=== PATIENT | female | born 1960 | race Caucasian/White ===

== ENCOUNTER → 2017-04-11 | Outpatient (CLI) | payer BC ==
--- NOTE | 2017-04-12 13:15 | MM ---
Reason for exam: screening (asymptomatic). Last mammogram was performed 1 year and 11 months ago. History: Patient is postmenopausal and had first child at age 33. Family history of breast cancer in aunt at age 60 and breast cancer in aunt at age 50. Physical Findings: A clinical breast exam by your physician is recommended on an annual basis and results should be correlated with mammographic findings. MG 3D Screening Mammo W/Cad Bilateral CC and MLO view(s) were taken. Prior study comparison: April 29, 2015, bilateral MG screening mammo w CAD. June 13, 2012, bilateral digital screening mammo w/CAD. There are scattered fibroglandular densities. There is chronic nodularity in the right breast. There is no discrete abnormality. ASSESSMENT: Benign, BI-RAD 2 RECOMMENDATION: Routine screening mammogram of both breasts in 1 year.
== END | disposition home or self-care (01) ==
LOC: RADMAMWWP 15:42
PROVIDERS: ATTEND Obstetrics & Gynecology
DX: Z12.31 Encounter for screening mammogram for malignant neoplasm of breast (principal)
CPT/HCPCS: 77063; 77067

== ENCOUNTER → 2018-07-22 | Outpatient (CLI) | payer BC ==
--- NOTE | 2018-07-22 16:47 | BD ---
EXAMINATION TYPE: Axial Bone Density DATE OF EXAM: 07/22/2018 COMPARISON: NONE CLINICAL HISTORY: Height: 5 FT 3 IN Weight: 164 FRAX RISK QUESTIONS: Family History (Parent hip fracture): YES RISK FACTORS HISTORY OF: Active: YES Postmenopausal woman: PART ORESTESST AGE 52 MEDICATIONS: Additional Medications: NONE Additional History: PREV BONE DENSITY DONE AT DRS OFFICE EXAM MEASUREMENTS: Bone mineral densitometry was performed using the [employer] System. Bone mineral density as measured about the Lumbar spine is: ----- L1-L4(G/cm2): 1.281 T Score Values are as follows: ----- L2: 0.5 ----- L3: 1.3 ----- L4: 1.2 ----- L1-L4: 0.8 PREV DONE IN DRS OFFICE Bone mineral density about the R hip (g/cm2): 0.960 Bone mineral density about the L hip (g/cm2): 0.963 T Score values are as follows: -----R Neck: -0.6 -----L Neck: -0.5 -----R Total: 0.1 -----L Total: 0.5 PREV DONE IN DRS OFFICE IMPRESSION: Normal (Values between +1 and -1 indicate normal bone mass). Consider repeating this study in 5 year s or sooner if there is some new clinical indication. NOTE: T-SCORE=SD OF THE YOUNG ADULT MEAN.
--- NOTE | 2018-07-23 10:20 | MM ---
Reason for exam: screening (asymptomatic). Last mammogram was performed 1 year and 3 months ago. History: Patient is postmenopausal and had first child at age 33. Family history of breast cancer in aunt at age 60 and breast cancer in aunt at age 50. Physical Findings: A clinical breast exam by your physician is recommended on an annual basis and results should be correlated with mammographic findings. MG 3D Screening Mammo W/Cad Bilateral CC and MLO view(s) were taken. Prior study comparison: April 11, 2017, bilateral MG 3d screening mammo w/cad. April 29, 2015, bilateral MG screening mammo w CAD. The breast tissue is heterogeneously dense. This may lower the sensitivity of mammography. There is no discrete abnormality. No significant changes when compared with prior studies. ASSESSMENT: Negative, BI-RAD 1 RECOMMENDATION: Routine screening mammogram of both breasts in 1 year.
== END | disposition home or self-care (01) ==
LOC: RADMAMWWP 08:46
PROVIDERS: ATTEND Internal Medicine Geriatric Medicine
DX: Z12.31 Encounter for screening mammogram for malignant neoplasm of breast (principal); M81.0 Age-related osteoporosis without current pathological fracture
CPT/HCPCS: 77063; 77067; 77080

== ENCOUNTER → 2019-09-16 | Outpatient (CLI) | payer BC ==
--- NOTE | 2019-09-16 14:52 | ECHOS ---
STRESS ECHOCARDIOGRAM LUMASON: Vial INDICATIONS: Palpitations. MEDICATIONS: Crestor, Benicar. BASELINE HEART RATE: 65 BASELINE BLOOD PRESSURE: 114/60 MAXIMUM HEART RATE: 159 MAXIMUM BLOOD PRESSURE: 191/71 85% MPHR: 136 100% MPHR: 160 METS: 9.7 MAXIMUM STAGE REACHED: 3 TOTAL EXERCISE TIME: 8:00 CLINICAL INFORMATION: Baseline EKG shows sinus rhythm, poor R-wave progression and [address]-segment depression in the inferolateral leads. The patient exercised on Robby protocol for a total of 8 minutes achieving 9 METS, 85% of predicted maximal heart rate without chest pain or diagnostic ST-segment depression. Baseline echo shows normal left ventricular size, wall motion systolic function. Postexercise, the basal inferior wall seemed to be hypokinetic. CONCLUSION: 1. Above-average exercise tolerance. 2. Inconclusive EKG part of the stress test due to baseline EKG abnormalities. 3. Abnormal stress echo with hypokinesis involving the basal inferior wall at peak exercise. MMODL / IJN: [id number] /
== END | disposition home or self-care (01) ==
LOC: RADNMMAIN 09:06
PROVIDERS: ATTEND Internal Medicine Geriatric Medicine
DX: R94.31 Abnormal electrocardiogram [ECG] [EKG] (principal); R94.39 Abnormal result of other cardiovascular function study
CPT/HCPCS: 93351

== ENCOUNTER → 2019-09-17 | Outpatient (CLI) | payer BC ==
--- NOTE | 2019-09-18 11:10 | MM ---
Reason for exam: screening (asymptomatic). Last mammogram was performed 1 year and 2 months ago. History: Patient is postmenopausal and had first child at age 33. Family history of breast cancer in sister at age 53, breast cancer in aunt at age 60, and breast cancer in aunt at age 50. Physical Findings: A clinical breast exam by your physician is recommended on an annual basis and results should be correlated with mammographic findings. MG 3D Screening Mammo W/Cad Bilateral CC and MLO view(s) were taken. Prior study comparison: July 22, 2018, bilateral MG 3d screening mammo w/cad. April 11, 2017, bilateral MG 3d screening mammo w/cad. The breast tissue is heterogeneously dense. This may lower the sensitivity of mammography. There are benign appearing round calcifications bilaterally. There is chronic nodularity in the right breast. There is no discrete abnormality. ASSESSMENT: Benign, BI-RAD 2 RECOMMENDATION: Routine screening mammogram of both breasts in 1 year.
== END | disposition home or self-care (01) ==
LOC: RADMAMWWP 09:10
PROVIDERS: ATTEND Obstetrics & Gynecology
DX: Z12.31 Encounter for screening mammogram for malignant neoplasm of breast (principal); Z80.3 Family history of malignant neoplasm of breast
CPT/HCPCS: 77063; 77067

== ENCOUNTER → 2019-09-22 | Outpatient (CLI) | payer BC ==
--- NOTE | 2019-09-22 14:23 | US ---
EXAMINATION TYPE: US kidneys/renal and bladder DATE OF EXAM: 09/22/2019 COMPARISON: NONE CLINICAL HISTORY: R94.4 Abnormal results of kidney function studies. EXAM MEASUREMENTS: Right Kidney: 9.6 x 3.4 x 4.2 cm Left Kidney: 9.2 x 4.9 x 5.0 cm Patient of large body habitus. Right Kidney: No hydronephrosis or masses seen Left Kidney: No hydronephrosis or masses seen Bladder: wnl There is no evidence for hydronephrosis at this point in time. No nephrolithiasis is seen. No joya s are identified. The urinary bladder is anechoic. Bilateral ureteral jets are seen. IMPRESSION: Slightly suboptimal study without evidence of hydronephrosis seen bilaterally.
== END | disposition home or self-care (01) ==
LOC: RADUSWWP 13:34
PROVIDERS: ATTEND Internal Medicine Geriatric Medicine
DX: R94.4 Abnormal results of kidney function studies (principal)
CPT/HCPCS: 76770

== ENCOUNTER 2019-12-15 16:17 | Emergency (ER) | payer BC ==
[2019-12-15 16:38] VITALS: BP 138/74; PULSE 64; RESP 18; TEMP 98.2
--- NOTE | 2019-12-15 17:12 | ED ---
General Adult HPI - General Chief complaint: Head Injury Stated complaint: Fall head injury Time Seen by Provider: 12/15/19 16:40 Source: patient, RN notes reviewed Mode of arrival: ambulatory Limitations: no limitations - History of Present Illness Initial comments: Patient is a pleasant 59-year-old female presenting to the emergency department with fall and head injury. Patient was standing on a chair dusting when she fell. Patient did strike the right side of her head on a dresser. Patient did not lose consciousness. Patient does have moderate discomfort. Patient has felt lightheaded. No confusion. No speech problem. No difficulty with walking. No weakness or loss of sensation. Patient does not take blood thinners. No history of similar head injuries previously. Patient states she is now starting to have some mild discomfort of her lower back. No incontinence or retention of bowel or bladder. - Related Data Previous Rx's Medication Instructions Recorded Ibuprofen [Motrin] 600 mg PO Q6HR PRN #20 tab 12/15/19 Allergies Allergy/AdvReac Type Severity Reaction Status Date / Time Sulfa (Sulfonamide Allergy Rash/Hives Verified 12/15/19 16:38 Antibiotics) Review of Systems ROS Statement: Those systems with pertinent positive or pertinent negative responses have been documented in the HPI. ROS Other: All systems not noted in ROS Statement are negative. Constitutional: Denies: fever Eyes: Denies: eye pain ENT: Reports: ear pain Respiratory: Denies: cough Cardiovascular: Denies: chest pain Endocrine: Denies: fatigue Gastrointestinal: Denies: abdominal pain Genitourinary: Denies: dysuria Musculoskeletal: Denies: back pain Skin: Denies: rash Neurological: Reports: as per HPI, headache (Mild discomfort on the right side). Denies: weakness, numbness, paresthesias, confusion Past Medical History Past Medical History: Hyperlipidemia, Hypertension Past Surgical History: No Surgical Hx Reported General Exam Limitations: no limitations General appearance: alert, in no apparent distress Head exam: Present: other (Abrasions right ear) Eye exam: Present: normal appearance, PERRL, EOMI. Absent: nystagmus ENT exam: Present: normal exam Neck exam: Present: normal inspection, full ROM. Absent: tenderness Respiratory exam: Present: normal lung sounds bilaterally. Absent: chest wall tenderness Cardiovascular Exam: Present: regular rate, normal rhythm GI/Abdominal exam: Present: soft. Absent: distended, tenderness Extremities exam: Present: normal inspection, full ROM. Absent: tenderness Back exam: Present: tenderness (Mild tenderness L2 region) Neurological exam: Present: alert, oriented X3, CN II-XII intact. Absent: motor sensory deficit Expanded Neurological exam: Present: protecting the airway Speech: Present: fluid speech Cranial nerves: EOM's Intact: Normal Sensory exam: Upper Extremity Light Touch: Normal, Lower Extremity Light Touch: Normal Motor strength exam: RUE: 5, LUE: 5, RLE: 5, LLE: 5 Eye Response: (4) open spontaneously Motor Response: (6) obeys commands Verbal Response: (5) oriented Psychiatric exam: Present: normal affect, normal mood Skin exam: Present: abrasion (Abrasions right ear, mild) Course Vital Signs 12/15/19 16:35 Temperature 98.2 F Pulse Rate 64 Respiratory 18 Rate Blood Pressure 138/74 O2 Sat by Pulse 99 Oximetry - Reevaluation(s) Reevaluation #1: 12/15/19 17:10 Patient is agreeable with head CT however does not want to have lumbar x-rays. Patient is unclear when her last tetanus immunization was. Patient does not want tetanus immunization provided but is agreeable to follow-up with her doctor regarding this. Medical Decision Making - Medical Decision Making Patient reevaluated and updated. Patient does not want any medication for lightheadedness or pain however does request prescription for Motrin 600 or Motrin 800. Patient still does not want back x-rays. - Radiology Data Radiology results: report reviewed (Computed tomography scan of the brain reveals no acute process) Disposition Clinical Impression: Fall, Head injury, Back strain Disposition: HOME SELF-CARE Condition: Stable Instructions (If sedation given, give patient instructions): Head Injury (ED), Low Back Strain (ED) Additional Instructions: Please do follow-up with your primary care physician in the next day or 2 for recheck. Prescription for Motrin 600 sent to your pharmacy. Avoid Motrin for the first 24 hours following head injury. Return for confusion, weakness, difficulty walking, dizziness or vomiting, worsening symptoms, increased back pain, or any other concerns. Prescriptions: Ibuprofen [Motrin] 600 mg PO Q6HR PRN #20 tab PRN Reason: Pain Is patient prescribed a controlled substance at d/c from ED?: No Referrals: Nehemias Schmidt MD [Primary Care Provider] - 1-2 days Time of Disposition: 17:49
--- NOTE | 2019-12-15 17:37 | CT ---
EXAMINATION TYPE: CT brain wo con DATE OF EXAM: 12/15/2019 COMPARISON: None HISTORY: dizziness post fall CT DLP: 1099.4 mGycm Automated exposure control for dose reduction was used. Ventricles and sulci appear normal. There is no mass effect nor midline shift. There is no sign of in tracranial hemorrhage. The calvarium is intact. IMPRESSION: Negative unenhanced head CT scan.
== END 2019-12-15 17:55 | disposition home or self-care (01) ==
LOC: EC 16:17
DX: S00.411A Abrasion of right ear, initial encounter (principal); S39.012A Strain of muscle, fascia and tendon of lower back, initial encounter; R42 Dizziness and giddiness; W07.XXXA Fall from chair, initial encounter; Y93.H9 Activity, other involving exterior property and land maintenance, building and construction; Z88.2 Allergy status to sulfonamides
CPT/HCPCS: 70450; 99283

== ENCOUNTER → 2020-09-20 | Outpatient (CLI) | payer BC ==
--- NOTE | 2020-09-21 10:05 | MM ---
Reason for exam: screening (asymptomatic). Last mammogram was performed 1 year ago. History: Patient is postmenopausal, has history of other cancer at age 55, and had first child at age 33. Family history of breast cancer in sister at age 53, breast cancer in aunt at age 60, and breast cancer in aunt at age 50. Physical Findings: A clinical breast exam by your physician is recommended on an annual basis and results should be correlated with mammographic findings. MG 3D Screening Mammo W/Cad Bilateral CC and MLO view(s) were taken. Prior study comparison: September 17, 2019, bilateral MG 3d screening mammo w/cad. July 22, 2018, bilateral MG 3d screening mammo w/cad. There are scattered fibroglandular densities. ASSESSMENT: Negative, BI-RAD 1 RECOMMENDATION: Routine screening mammogram of both breasts in 1 year.
== END | disposition home or self-care (01) ==
LOC: RADMAMWWP 09:50
PROVIDERS: ATTEND Obstetrics & Gynecology
DX: Z12.31 Encounter for screening mammogram for malignant neoplasm of breast (principal); Z78.0 Asymptomatic menopausal state; Z80.3 Family history of malignant neoplasm of breast
CPT/HCPCS: 77063; 77067

== ENCOUNTER → 2021-08-01 | Outpatient (CLI) | payer BC ==
--- NOTE | 2021-08-01 16:04 | XR ---
EXAMINATION TYPE: XR cervical spine comp DATE OF EXAM: 08/01/2021 CLINICAL HISTORY: pain COMPARISON: NONE TECHNIQUE: Frontal, lateral, oblique, swimmers, and open mouth view of the cervical spine are obtaine d. FINDINGS: The cervical spine is visualized in its entirety from C1 thru the top of T1 level. It is s atisfactory in alignment without evidence of acute fracture or dislocation. The pre-vertebral soft t issue appears within normal limits. Degenerative disc space narrowing and spondylosis at C4-C6. The C 1-C2 articulation is unremarkable on the open mouth view. The oblique images are within normal limit s. IMPRESSION: No acute fracture or dislocation is seen in the cervical spine.ICD 10 NO FRACTURE, INITI AL EVALUATION
== END | disposition home or self-care (01) ==
LOC: RADXRMAIN 15:40
PROVIDERS: ATTEND Internal Medicine Geriatric Medicine
DX: M54.2 Cervicalgia (principal)
CPT/HCPCS: 72050

== ENCOUNTER → 2021-08-01 | Outpatient (CLI) | payer BC ==
--- NOTE | 2021-08-01 15:32 | US ---
EXAMINATION TYPE: US kidneys/renal and bladder DATE OF EXAM: 08/01/2021 COMPARISON: US 09/22/19 CLINICAL HISTORY: N20.0 KIDNEY STONE. History of renal stones. C/O dull ache right lower back/flank. EXAM MEASUREMENTS: Right Kidney: 10.2 x 4.4 x 4.2 cm Left Kidney: 10.1 x 4.9 x 4.3 cm Post Void Residual Volume: 12.3 mL Right Kidney: No masses seen, mild fullness of pelvis = 0.9 cm, lateral cyst = 0.8 0.9 x 0.7 cm Left Kidney: No hydronephrosis or masses seen Bladder: wnl Bilateral Jets seen: Yes Normal Post Void Residual: Yes There is no evidence for hydronephrosis at this point in time. No nephrolithiasis is seen. No joya s are identified. The urinary bladder is anechoic. Bilateral ureteral jets are seen. IMPRESSION: Borderline right sided hydronephrosis
== END | disposition home or self-care (01) ==
LOC: RADUSWWP 14:44
PROVIDERS: ATTEND Internal Medicine Geriatric Medicine
DX: N13.30 Unspecified hydronephrosis (principal); Z87.442 Personal history of urinary calculi
CPT/HCPCS: 76770

== ENCOUNTER → 2021-09-27 | Outpatient (CLI) | payer BC ==
--- NOTE | 2021-09-29 07:38 | MM ---
Reason for Exam: Screening (asymptomatic). Last screening mammogram was performed 12 month(s) ago. Patient History: Menarche at age 14. First Full-Term at age 33. Late child-bearing (after 30). Right ovary removed at age 52. Hysterectomy at age 52. Postmenopausal. Other cancer, age 55. Maternal aunt had breast cancer, age 60. Maternal aunt had breast cancer, age 50. Sister had breast cancer, age 53. Risk Values: Krysta 5 year model risk: 2.8%. NCI Lifetime model risk: 12.4%. Prior Study Comparison: 07/22/2018 Bilateral Screening Mammogram, [facility]. 09/17/2019 Bilateral Screening Mammogram, [facility]. 09/20/2020 Bilateral Screening Mammogram, [facility]. Tissue Density: There are scattered fibroglandular densities. Findings: Analyzed By CAD. No suspicious groups of microcalcifications, spiculated or lobular masses, architectural distortion or other secondary signs of malignancy are mammographically apparent. Overall Assessment: Benign, BI-RAD 2 Management: Screening Mammogram of both breasts in 1 year. A negative mammogram report should not preclude additional follow up of suspicious palpable abnormalities. Patient should continue monthly self breast exam. A clinical breast exam by your physician is recommended on an annual basis and results should be correlated with mammographic findings. Electronically signed and approved by: Taiwo Rojas D.O. Radiologis
== END | disposition home or self-care (01) ==
LOC: RADMAMWWP 08:18
PROVIDERS: ATTEND Obstetrics & Gynecology
DX: Z12.31 Encounter for screening mammogram for malignant neoplasm of breast (principal); Z78.0 Asymptomatic menopausal state; Z80.3 Family history of malignant neoplasm of breast; Z85.3 Personal history of malignant neoplasm of breast
CPT/HCPCS: 77063; 77067

== ENCOUNTER 2022-03-22 09:20 | Observation (INO) | payer BC ==
[2022-03-22] MEDS ORDERED: ASPIRIN 81 MG PO STA (10:01)
--- NOTE | 2022-03-22 10:03 | ED ---
General Adult HPI - General Chief complaint: Chest Pain Stated complaint: Chest Pain, Sent by PCP Time Seen by Provider: 03/22/22 09:35 Source: patient Mode of arrival: ambulatory Limitations: no limitations - History of Present Illness Initial comments: Dictation was produced using [employer] dictation software. please excuse any grammatical, word or spelling errors. Chief Complaint: 62-year-old female presents to the ER for chest pain History of Present Illness: 62-year-old female sent in from primary care physician's office for chest pain. She describes as a pressure of the left anterior chest. And radiating. Not associated with diaphoresis and nausea. Patient was initially seen at primary care physician's office where she was initially evaluated. She was sent to the emergency department for further care. Patient has history of dyslipidemia and hypertension. Denies any history of cardiac disease though she does report strong family history of heart attacks and related complications. The ROS documented in this emergency department record has been reviewed and confirmed by me. Those systems with pertinent positive or negative responses have been documented in the HPI. All other systems are other negative and/or noncontributory. PHYSICAL EXAM: General Impression: Alert and oriented x3, not in acute distress HEENT: Normocephalic atraumatic, extra-ocular movements intact, pupils equal and reactive to light bilaterally, mucous membranes moist. Cardiovascular: Heart regular rate and rhythm Chest: Able to complete full sentences, no retractions, no tachypnea Abdomen: abdomen soft, non-tender, non-distended, no organomegaly Musculoskeletal: Pulses present and equal in all extremities, no peripheral mallory a Motor: no focal deficits noted Neurological: CN II-XII grossly intact, no focal motor or sensory deficits noted Skin: Intact with no visualized rashes Psych: Normal affect and mood ED course: 62-year-old female sent in from primary care physician's office for clinical presentation consistent with acute coronary syndrome. vital signs upon arrival are within acceptable limits. Initial EKG performed at 9:38 AM showed ischemic changes in the inferior leads. Repeat EKG performed approximately 15 minutes later shows improvement of these ST depressions. Nursing notes and chart review was performed EKG interpreted by me: Ventricular rate sinus rhythm, 69,. 160, QRS 87, QTc 434,. No PA prolongation, no QTC prolongation. ST depressions in inferior leads. No obvious ST elevations. EKG consistent with ischemic changes. Laboratory evaluation obtained. CBC, metabolic panel, coag panel is unremarkable. Abdominal labs negative. Initial troponin is negative. Chest x- ray is nonacute. Patient reevaluated at bedside 1120 and found to be in stable medical condition. She denies any active symptoms upon reevaluation. Patient's clinical presentation is concerning for acute coronary syndrome. Patient be admitted observation with consultation to cardiology. Patient admitted to [facility]. Was pt. sent in by a medical professional or institution? @Primary care physician's office, Dr. Schmidt Did you speak to anyone other than the patient for history? @Patient, family Did you review nursing and triage notes? @Reviewed, agreed Were old charts reviewed? @Not applicable Differential Diagnosis? @ [facility] Differential Chest Pain: Stable Angina, Unstable Angina, STEMI, NSTEMI Aortic Dissection, Pneumothorax, Musculoskeletal, Esophageal Spasm GERD, Cholecystitis, Pancreatitis, Zoster This is not meant to be an all-inclusive list. EKG interpreted by me (3pts min.)? @Yes, see above X-rays interpreted by me (1pt min.)? @Yes, unremarkable CT interpreted by me (1pt min.)? @ [none] U/S interpreted by me (1pt. min.)? @ [none] What testing was considered but not performed? (CT, X-rays, U/S, labs)? Why? @D-dimer was considered however patient's symptoms are unlikely to suggest pulmonary embolism What meds were considered but not given? Why? @ [none] Did you discuss the management of the patient with other professionals? @Admitting physician for [facility] Did you reconcile home meds? @Yes Was smoking cessation discussed for >3mins.? @ [none] Was critical care preformed (if so, how long)? @ [none] Were there social determinants of health that impacted care today? How? (Homelessness, low income, unemployed, alcoholism, drug addiction, transportation, low edu. Level, literacy, decrease access to med. care, [facility], rehab)? @Not applicable Was there de-escalation of care discussed even if they declined? (Discuss DNR or withdrawal of care, Hospice)? @Not applicable What co-morbidities impacted this encounter? (DM, HTN, Smoking, COPD, CAD, Cancer, CVA, Hep., AIDS, mental health diagnosis, sleep apnea, morbid obesity)? @Family history, hypertension Was patient admitted / discharged? @Admitted to observation for cardiac monitoring Undiagnosed new problem with uncertain prognosis? @This is patient's first encounter for chest pain in the hospital Drug Therapy requiring intensive monitoring for toxicity (Heparin, Nitro, Insulin, Cardizem)? @ [none] Were any procedures done? @ [none] Diagnosis/symptom? @Acute coronary syndrome Acute, or Chronic, or Acute on Chronic? @Acute Uncomplicated (without systemic symptoms) or Complicated (systemic symptoms)? @Uncomplicated Side effects of treatment? @ [none] Exacerbation, Progression, or Severe Exacerbation] @ [no] Poses a threat to life or bodily function? @Yes - Related Data Home Medications Medication Instructions Recorded Confirmed Rosuvastatin Calcium 5 mg PO Q48H 03/22/22 03/22/22 hydrALAZINE HCL [Apresoline] 25 mg PO BID 03/22/22 03/22/22 Allergies Allergy/AdvReac Type Severity Reaction Status Date / Time Sulfa (Sulfonamide Allergy Rash/Hives Verified 03/22/22 11:19 Antibiotics) Review of Systems ROS Statement: Those systems with pertinent positive or pertinent negative responses have been documented in the HPI. ROS Other: All systems not noted in ROS Statement are negative. Past Medical History Past Medical History: Hyperlipidemia, Hypertension History of Any Multi-Drug Resistant Organisms: None Reported Past Surgical History: No Surgical Hx Reported Past Psychological History: No Psychological Hx Reported Smoking Status: Never smoker Past Alcohol Use History: Occasional Past Drug Use History: None Reported General Exam Limitations: no limitations Course Vital Signs 03/22/22 09:32 Temperature 98.6 F Pulse Rate 75 Respiratory 20 Rate Blood Pressure 135/77 O2 Sat by Pulse 99 Oximetry Medical Decision Making - Lab Data Result diagrams: 03/22/22 10:20 03/22/22 10:20 Lab Results 03/22/22 03/22/22 03/22/22 Range/Units 10:20 10:20 10:20 WBC 5.8 (3.8-10.6) k/uL RBC 5.14 (3.80-5.40) m/uL Hgb 15.7 (11.4-16.0) gm/dL Hct 48.2 H (34.0-46.0) % MCV 93.8 (80.0-100.0) fL MCH 30.7 (25.0-35.0) pg MCHC 32.7 (31.0-37.0) g/dL RDW 12.3 (11.5-15.5) % Plt Count 287 (150-450) k/uL MPV 7.0 Neutrophils % 63 % Lymphocytes % 27 % Monocytes % 4 % Eosinophils % 4 % Basophils % 1 % Neutrophils # 3.6 (1.3-7.7) k/uL Lymphocytes # 1.6 (1.0-4.8) k/uL Monocytes # 0.2 (0-1.0) k/uL Eosinophils # 0.2 (0-0.7) k/uL Basophils # 0.1 (0-0.2) k/uL PT 10.1 (9.0-12.0) sec INR 0.9 (<1.2) APTT 24.7 (22.0-30.0) sec Sodium 140 (137-145) mmol/L Potassium 4.3 (3.5-5.1) mmol/L Chloride 109 H (98-107) mmol/L Carbon Dioxide 25 (22-30) mmol/L Anion Gap 6 mmol/L BUN 18 H (7-17) mg/dL Creatinine 0.92 (0.52-1.04) mg/dL Est GFR (CKD-EPI)AfAm 77 (>60 ml/min/1.73 sqM) Est GFR (CKD-EPI)NonAf 67 (>60 ml/min/1.73 sqM) Glucose 106 H (74-99) mg/dL Calcium 9.5 (8.4-10.2) mg/dL Magnesium 2.1 (1.6-2.3) mg/dL Total Bilirubin 0.6 (0.2-1.3) mg/dL AST 21 (14-36) U/L ALT 21 (4-34) U/L Alkaline Phosphatase 106 (38-126) U/L Troponin I (0.000-0.034) ng/mL Total Protein 7.1 (6.3-8.2) g/dL Albumin 4.5 (3.5-5.0) g/dL 03/22/ Range/Units 10:20 WBC (3.8-10.6) k/uL RBC (3.80-5.40) m/uL Hgb (11.4-16.0) gm/dL Hct (34.0-46.0) % MCV (80.0-100.0) fL MCH (25.0-35.0) pg MCHC (31.0-37.0) g/dL RDW (11.5-15.5) % Plt Count (150-450) k/uL MPV Neutrophils % % Lymphocytes % % Monocytes % % Eosinophils % % Basophils % % Neutrophils # (1.3-7.7) k/uL Lymphocytes # (1.0-4.8) k/uL Monocytes # (0-1.0) k/uL Eosinophils # (0-0.7) k/uL Basophils # (0-0.2) k/uL PT (9.0-12.0) sec INR (<1.2) APTT (22.0-30.0) sec Sodium (137-145) mmol/L Potassium (3.5-5.1) mmol/L Chloride (98-107) mmol/L Carbon Dioxide (22-30) mmol/L Anion Gap mmol/L BUN (7-17) mg/dL Creatinine (0.52-1.04) mg/dL Est GFR (CKD-EPI)AfAm (>60 ml/min/1.73 sqM) Est GFR (CKD-EPI)NonAf (>60 ml/min/1.73 sqM) Glucose (74-99) mg/dL Calcium (8.4-10.2) mg/dL Magnesium (1.6-2.3) mg/dL Total Bilirubin (0.2-1.3) mg/dL AST (14-36) U/L ALT (4-34) U/L Alkaline Phosphatase (38-126) U/L Troponin I <0.012 (0.000-0.034) ng/mL Total Protein (6.3-8.2) g/dL Albumin (3.5-5.0) g/dL Disposition Clinical Impression: ACS (acute coronary syndrome) Disposition: ADMITTED IP TO THIS [facility] Condition: Fair Referrals: Nehemias Schmidt MD [Primary Care Provider] - 1-2 days Decision Time: 11:27
[2022-03-22 10:31] LABS: Basophils # (A) 0.1 k/uL (0-0.2); Basophils % (A) 1 %; Eosinophils # (A) 0.2 k/uL (0-0.7); Eosinophils % (A) 4 %; HCT 48.2 % (34.0-46.0); HGB 15.7 gm/dL (11.4-16.0); Lymphocytes # (A) 1.6 k/uL (1.0-4.8); Lymphocytes % (A) 27 %; MCH 30.7 pg (25.0-35.0); MCHC 32.7 g/dL (31.0-37.0); MCV 93.8 fL (80.0-100.0); Monocytes # (A) 0.2 k/uL (0-1.0); Monocytes % (A) 4 %; Neutrophils # (A) 3.6 k/uL (1.3-7.7); Neutrophils % (A) 63 %; Platelet Count 287 k/uL (150-450); RBC 5.14 m/uL (3.80-5.40); RDW 12.3 % (11.5-15.5); WBC 5.8 k/uL (3.8-10.6)
[2022-03-22 10:44] LABS: INR 0.9 (<1.2); Partial Thromboplastin Time 24.7 sec (22.0-30.0); Prothrombin Time 10.1 sec (9.0-12.0)
[2022-03-22 10:46] LABS: Albumin 4.5 g/dL (3.5-5.0); Calcium 9.5 mg/dL (8.4-10.2); Magnesium 2.1 mg/dL (1.6-2.3); Potassium 4.3 mmol/L (3.5-5.1); Total Bilirubin 0.6 mg/dL (0.2-1.3); Total Protein 7.1 g/dL (6.3-8.2)
--- NOTE | 2022-03-22 10:47 | XR ---
EXAMINATION TYPE: XR chest 2V DATE OF EXAM: 03/22/2022 COMPARISON: 08/08/2011 HISTORY: Shortness of breath TECHNIQUE: Frontal and lateral views of the chest are obtained. FINDINGS: Scattered senescent parenchymal changes noted. Hyperinflation compatible with COPD. No evidence for infiltrate. No evidence for atelectasis. Heart size is stable. Mediastinal structures are stable and grossly unremarkable. No evidence for hilar prominence. Degenerative changes dorsal spine. IMPRESSION: 1. No evidence for acute pulmonary disease.
[2022-03-22] MEDS ORDERED: NITROGLYCERIN SL TABS 0.4 MG TAB SUBLINGUAL PRN (11:22)
[2022-03-22 11:39] VITALS: RESP 16
[2022-03-22] MEDS ORDERED: ACETAMINOPHEN TAB 325 MG TAB PO PRN (11:46)
[2022-03-22] MEDS ORDERED: HYDROcodone/APAP 5-325MG 1 EACH TAB PO PRN (11:46)
--- NOTE | 2022-03-22 11:48 | P.HPIM ---
History of Present Illness This is a pleasant 62 years old female presents with chest pain. Patient status for a week she has palpitations and lightheadedness and then she developed left upper chest pain radiating to the left neck about 5/10 in severity. [place] like pressure No associated dyspnea or coughing. No leg pain or swelling are at No diarrhea vomiting or abdominal pain, no urgency or urinary dysuria. She has mild frontal headache but no dizziness or weakness or numbness She denies smoking alcohol or illicit drugs Vitals and labs look unremarkable. Checks x-ray: No acute process. EKG: Sinus rhythm at [address]-T changes Patient started on aspirin 325 mg Review of Systems Review of systems CONSTITUTIONAL: No fever, no malaise, no fatigue. HEENT: No recent visual problems or hearing problems. Denied any sore throat. CARDIOVASCULAR: No orthopnea, PND, no palpitations, no syncope. PULMONARY: No shortness of breath, no cough, no hemoptysis. GASTROINTESTINAL: No diarrhea, no nausea, no vomiting, no abdominal pain. Normoactive bowel sounds. NEUROLOGICAL: No headaches, no weakness, no numbness. HEMATOLOGICAL: Denies any bleeding or petechiae. GENITOURINARY: Denies any burning micturition, frequency, or urgency. MUSCULOSKELETAL/RHEUMATOLOGICAL: Denies any joint pain, swelling, or any muscle pain. ENDOCRINE: Denies any polyuria or polydipsia. Past Medical History Past Medical History: Hyperlipidemia, Hypertension History of Any Multi-Drug Resistant Organisms: None Reported Past Surgical History: No Surgical Hx Reported Past Psychological History: No Psychological Hx Reported Smoking Status: Never smoker Past Alcohol Use History: Occasional Past Drug Use History: None Reported Medications and Allergies Home Medications Medication Instructions Recorded Confirmed Type Rosuvastatin Calcium 5 mg PO Q48H 03/22/22 03/22/22 History hydrALAZINE HCL [Apresoline] 25 mg PO BID 03/22/22 03/22/22 History Allergies Allergy/AdvReac Type Severity Reaction Status Date / Time Sulfa (Sulfonamide Allergy Rash/Hives Verified 03/22/22 11:19 Antibiotics) Physical Exam Vitals: Vital Signs Temp Pulse Resp BP Pulse Ox 03/22/22 11:37 98.1 F 96 16 136/70 100 03/22/22 09:32 98.6 F 75 20 135/77 99 Intake and Output 12/03/22/22 03/22/22 22:59 06:59 14:59 Other: Weight 80.739 kg GENERAL: The patient is alert and oriented x3, not in any acute distress. Well developed, well nourished. HEENT: Pupils are round and equally reacting to light. EOMI. No scleral icterus. No conjunctival pallor. Normocephalic, atraumatic. No pharyngeal erythema. No thyromegaly. -CARDIOVASCULAR: S1 and S2 present. No murmurs, rubs, or gallops. Left upper chest tenderness PULMONARY: Chest is clear to auscultation, no wheezing or crackles. ABDOMEN: Soft, nontender, nondistended, normoactive bowel sounds. No palpable organomegaly. MUSCULOSKELETAL: No joint swelling or deformity. EXTREMITIES: No cyanosis, clubbing, or pedal edema. NEUROLOGICAL: Gross neurological examination did not reveal any focal deficits. SKIN: No rashes. no petechiae. Results CBC & Chem 7: 03/22/22 10:20 03/22/22 10:20 Labs: Abnormal Lab Results - Last 24 Hours (Table) 03/22/22 03/22/22 Range/Units 10:20 10:20 Hct 48.2 H (34.0-46.0) % Chloride 109 H (98-107) mmol/L BUN 18 H (7-17) mg/dL Glucose 106 H (74-99) mg/dL Assessment and Plan Assessment: Left upper Chest pain and mild tenderness rule out cardiac causes Hypertension Hyperlipidemia Plan: Continue with monitoring cardiac exam continue with aspirin Cardiology consult Pain management Labs and medication were reviewed.. Continue same treatment. Continue with symptomatic treatment. Resume home medication. Monitor labs and vitals. DVT and GI prophylaxis. Further recommendations as per clinical course of the patient DVT prophylaxis: Subcutaneous heparin GI Prophylaxis: Pepcid PT/OT: Pending Prognosis is guarded
[2022-03-22] MEDS: FAMOTIDINE 20 MG TAB PO SCH (20:14)
[2022-03-22] MEDS: HEPARIN SODIUM,PORCINE/PF 5,000 UNIT/0.5 ML SYRINGE SQ SCH (20:15)
[2022-03-22] MEDS: hydrALAZINE HCL 25 MG TAB PO SCH (20:15)
[2022-03-22] MEDS ORDERED: ATORVASTATIN 10 MG TAB PO SCH (21:00)
[2022-03-22] MEDS ORDERED: FAMOTIDINE 20 MG/2 ML VIAL IV SCH (21:00)
[2022-03-23] MEDS: hydrALAZINE HCL 25 MG TAB PO SCH (08:12)
[2022-03-23] MEDS: HEPARIN SODIUM,PORCINE/PF 5,000 UNIT/0.5 ML SYRINGE SQ SCH (08:13)
[2022-03-23] MEDS: FAMOTIDINE 20 MG TAB PO SCH (08:13)
[2022-03-23 08:45] VITALS: TEMP 98.2
[2022-03-23] MEDS ORDERED: ASPIRIN 325 MG TAB PO SCH (09:00)
--- NOTE | 2022-03-23 09:13 | P.CRDCN ---
History of Present Illness Consult date: 03/23/22 Consult reason: chest pain History of present illness: History of present illness: This is a 62-year-old female with no history of coronary artery disease. She has a past medical history of hypertension and hyperlipidemia. Patient complains of chest pain/pressure and the upper left chest that been going on for one week. She also complains of palpitations. Pain radiates up into her neck on the left side and it's hard for her to turn her head to the left. It does not seem to be related to exertion. She denies having shortness of breath. She states she's had a little bit of lightheadedness but no syncope. She does feel uncomfortable lifting her left arm. She has a family history of father dying at age 68 with previous myocardial infarction at age 37. Her brother also had a myocardial infarction. EKG sinus rhythm with no acute ST changes Chest x-ray no acute process Troponin negative 3. BUN 18 creatinine 0.92, potassium 4.3 Home cardiac medications: Hydralazine 25 mg twice daily, rosuvastatin 5 mg every 48 hours Review Of Systems: At the time of my evaluation Constitutional: No fever, no chills. No weakness, fatigue or lethargy. EENT: No headache. No dizziness. Positive left neck pain Lungs: No shortness of breath, cough, no sputum production. No wheezing. Cardiovascular: Left-sided chest pain, no lower extremity edema. No palpitations. No paroxysmal nocturnal dyspnea. No orthopnea. No lightheadedness or dizziness. No syncopal episodes. Abdominal: No abdominal pain. No nausea, vomiting. No diarrhea. No constipation. No bloody or tarry stools.. No loss of appetite. Genitourinary: No dysuria.. No urinary retention. Musculoskeletal: No myalgias. No muscle weakness, no gait dysfunction, no frequent falls. No back pain. No neck pain. Integumentary: No wounds. No rash or pruritus. No unusual bruising. Neurologic: No aphasia. No facial droop. No change in mentation. No head injury. No headache. No paralysis. No paresthesia. Psychiatric: No depression. No anxiety. Endocrine: No abnormal blood sugars. Physical examination: Gen: This is a 62-year-old female. She is resting in recliner appears to be comfortable and in no acute distress VS: reviewed HEENT: Head is atraumatic, normocephalic. Pupils equal, round. Sclerae is anicteric. NECK: Supple. No JVD. LUNGS: Clear to auscultation. No wheezes or rhonchi. No intercostal retractions. HEART: Regular rate and rhythm. No murmur. Tenderness to the left chest wall. ABDOMEN: Soft. No masses. No tenderness. EXTREMITIES: No pedal edema. No calf tenderness. NEUROLOGICAL: Patient is awake, alert and oriented x3. Assessment: Chest pain, negative troponins, acute coronary syndrome ruled out Palpitations Hyperlipidemia Hypertension Plan: Exercise stress test today Recommend outpatient cardiac monitoring for symptoms of palpitation Continue hydralazine and statin Further recommendations to follow based upon clinical course Thank you kindly for this consultation. Nurse practitioner note has been reviewed, I agree with documented findings and plan of care. Patient was seen and examined. Past Medical History Past Medical History: Hyperlipidemia, Hypertension History of Any Multi-Drug Resistant Organisms: None Reported Past Surgical History: No Surgical Hx Reported Additional Past Surgical History / Comment(s): abdominal prolapse with mesh Past Anesthesia/Blood Transfusion Reactions: No Reported Reaction Past Psychological History: No Psychological Hx Reported Smoking Status: Never smoker Past Alcohol Use History: Occasional Past Drug Use History: None Reported Medications and Allergies Home Medications Medication Instructions Recorded Confirmed Type Rosuvastatin Calcium 5 mg PO Q48H 03/22/22 03/22/22 History hydrALAZINE HCL [Apresoline] 25 mg PO BID 03/22/22 03/22/22 History Allergies Allergy/AdvReac Type Severity Reaction Status Date / Time Sulfa (Sulfonamide Allergy Rash/Hives Verified 03/22/22 11:19 Antibiotics) Physical Exam Vitals: Vital Signs Temp Pulse Pulse Resp BP BP Pulse Ox 03/23/22 02:42 98.1 F 66 16 128/72 97 03/22/22 19:56 97.7 F 73 16 155/76 100 03/22/22 14:00 98.2 F 79 16 146/77 99 03/22/22 12:27 97.6 F 74 16 152/89 100 03/22/22 11:37 98.1 F 96 16 136/70 100 03/22/22 09:32 98.6 F 75 20 135/77 99 Intake and Output 03/22/22 03/23/22 03/23/22 22:59 06:59 14:59 Other: # Voids 1 2 Results 03/22/22 10:20 03/22/22 10:20 Cardiac Enzymes 03/22/22 03/22/22 03/22/22 Range/Units 10:20 10:20 12:30 AST 21 (14-36) U/L Troponin I <0.012 <0.012 (0.000-0.034) ng/mL 03/22/22 Range/Units 15:37 AST (14-36) U/L Troponin I <0.012 (0.000-0.034) ng/mL Coagulation 03/22/22 Range/Units 10:20 PT 10.1 (9.0-12.0) sec APTT 24.7 (22.0-30.0) sec CBC 03/22/22 Range/Units 10:20 WBC 5.8 (3.8-10.6) k/uL RBC 5.14 (3.80-5.40) m/uL Hgb 15.7 (11.4-16.0) gm/dL Hct 48.2 H (34.0-46.0) % Plt Count 287 (150-450) k/uL Comprehensive Metabolic Panel 03/22/22 Range/Units 10:20 Sodium 140 (137-145) mmol/L Potassium 4.3 (3.5-5.1) mmol/L Chloride 109 H (98-107) mmol/L Carbon Dioxide 25 (22-30) mmol/L BUN 18 H (7-17) mg/dL Creatinine 0.92 (0.52-1.04) mg/dL Glucose 106 H (74-99) mg/dL Calcium 9.5 (8.4-10.2) mg/dL AST 21 (14-36) U/L ALT 21 (4-34) U/L Alkaline Phosphatase 106 (38-126) U/L Total Protein 7.1 (6.3-8.2) g/dL Albumin 4.5 (3.5-5.0) g/dL Current Medications Generic Name Dose Route Start Last Admin Trade Name Freq PRN Reason Stop Dose Admin Acetaminophen 325 mg 03/22/22 11:46 Acetaminophen Tab 325 Mg Tab PO Q6HR PRN Fever and/ or Mild Pain Hydrocodone Bitart/Acetaminophen 1 each 03/22/22 11:46 Hydrocodone/Apap 5-325mg 1 Each Tab PO Q6HR PRN Pain Aspirin 325 mg 03/23/22 09:00 Aspirin 325 Mg Tab PO DAILY RADHA Atorvastatin Calcium 10 mg 03/22/22 21:00 03/22/22 20:14 Atorvastatin 10 Mg Tab PO 10 mg HS RADHA Administration Famotidine 20 mg 03/22/22 21:00 03/22/22 20:14 Famotidine 20 Mg Tab PO 20 mg Q12HR RADHA Administration Heparin Sodium (Porcine) 5,000 unit 03/22/22 21:00 03/22/22 20:15 Heparin Sodium,Porcine/Pf 5,000 Unit/0.5 Ml Syringe SQ 5,000 unit Q12HR RADHA Administration Hydralazine HCl 25 mg 03/22/22 21:00 03/22/22 20:15 Hydralazine Hcl 25 Mg Tab PO 25 mg BID RADHA Administration Nitroglycerin 0.4 mg 03/22/22 11:22 Nitroglycerin Sl Tabs 0.4 Mg Tab SUBLINGUAL Q5M PRN Chest Pain Intake and Output 03/22/22 03/23/22 03/23/22 22:59 06:59 14:59 Other: # Voids 1 2 03/22/22 10:20 03/22/22 10:20
[2022-03-23 09:14] LABS: Chol/HDL Ratio 2.69 Ratio; LDL Cholesterol,Calculated 104.8 mg/dL (0.0-131.0); VLDL Calculation 15.12 mg/dL (5.00-40.00)
--- NOTE | 2022-03-23 12:19 | CA ---
Exercise Stress Test Report Name: Valeria Cunningham Exam Date: 03/23/2022 09:10 Exam Location: [facility] Ht (in): 63 Wt (lb): 178 BSA: 1.84 Ordering Phys: Angelica Alvarez Referring Phys: SINA,, Technologist: Babs Wilkins RDCS Age: 62 Gender: F : 1960 Procedure CPT: Indications: CP ICD-10 Codes: Patient History: palp, cp, htn, chol, fam hx Medications: Meds past 24 hrs: Pretest Chest Pain: STRESS TEST Robby Protocol Exercise Duration (min:sec): 07:[address] Depressions (mm): Angina Score: Hawkins Score: Resting HR (bpm): 78 Peak HR (bpm): 158 Resting BP (mmHg): 156 / 72 Peak BP (mmHg): 195 / 77 MPHR: 157 Target HR: 133 % MPHR: 101 METS: 9.3 Total Dose: Peak Dose: Atropine: Double Product: [id number] BP Response: Stress Termination: Stress Symptoms: Stress Summary: ECG ANALYSIS Resting ECG: Stress ECG: CONCLUSIONS Excellent exercise tolerance Normal EKG in response to exercise Dr. Krish Morrow MD (Electronically Signed) Final Date: 23 March 2022 12:18
--- NOTE | 2022-03-23 13:24 | US ---
EXAMINATION TYPE: US carotid duplex BILAT DATE OF EXAM: 03/23/2022 COMPARISON: NONE CLINICAL HISTORY: neck pain. Neck pain TECHNIQUE: Carotid duplex ultrasound examination. Indirect Doppler criteria was utilized. FINDINGS: EXAM MEASUREMENTS: RIGHT: Peak Systolic Velocity (PSV) cm/sec ----- Right CCA: 86.6 ----- Right ICA: 145.1 ----- Right ECA: 168.6 ICA/CCA ratio: 1.7 RIGHT: End Diastole cm/sec ----- Right CCA: 22.7 ----- Right ICA: 46.5 ----- Right ECA: 22.9 LEFT: Peak Systolic Velocity (PSV) cm/sec ----- Left CCA: 124.4 ----- Left ICA: 135.7 ----- Left ECA: 169.4 ICA/CCA ratio: 1.1 LEFT: End Diastole cm/sec ----- Left CCA: 30.7 ----- Left ICA: 43.1 ----- Left ECA: 30 VERTEBRALS (direction of flow): Right Vertebral: Antegrade Left Vertebral: Antegrade Rhythm: Normal [place] [facility] NOTES: No significant stenosis seen IMPRESSION: No evidence for hemodynamically significant stenosis. Criteria for Assigning % of Stenosis / Diameter reduction (Estimation based on the indirect measurements of the internal carotid artery velocities (ICA PSV). 1. Normal (no stenosis)=ICA PSV < 125 cm/s: ratio < 2.0: ICA EDV<40 cm/s. 2. Less than 50% stenosis=ICA PSV < 125 cm/s: ratio < 2.0: ICA EDV<40 cm/s. 3. 50 to 69% stenosis=ICA PSV of 125 to 230 cm/s: ration 2.0 ? 4.0: ICA EDV 40-100 cm/s. 4. Greater than 70% stenosis to near occlusion= ICA PSV > 230 cm/s: ratio > 4.0: ICA EDV > 100 cm/s. 5. Near occlusion= ICA PSV velocities may be low or undetectable: variable ratio and ICA EDV. 6. Total occlusion=unable to detect flow.
[2022-03-23 15:06] VITALS: BP 124/65; PULSE 77
== END 2022-03-23 16:35 | disposition home or self-care (01) ==
LOC: EC 09:20 → 6NMEDSUR 11:22
PROVIDERS: ADMIT Internal Medicine; ATTEND Internal Medicine
DX: R07.89 Other chest pain (principal); E78.5 Hyperlipidemia, unspecified; I10 Essential (primary) hypertension; M54.2 Cervicalgia; Z82.49 Family history of ischemic heart disease and other diseases of the circulatory system; Z79.899 Other long term (current) drug therapy; Z88.2 Allergy status to sulfonamides
CPT/HCPCS: 96372; 99285; 36415; 94760; 93005; 93017; 85379; 80061; 80053; 83735; 84484; 85025; 85610; 85730; 71046; 93880; G0378 ×2; J1644

== ENCOUNTER → 2022-10-04 | Outpatient (CLI) | payer BC ==
--- NOTE | 2022-10-04 13:09 | BD ---
EXAMINATION TYPE: Axial Bone Density DATE OF EXAM: 10/04/2022 CLINICAL HISTORY: 62 years old Female. ICD-10 CODE: M81.0AGE-RELATED OSTEOPOROSIS W/O CURRENT P Height: 62.5 Weight: 176.6 FRAX RISK QUESTIONS: Alcohol (3 or more units per day): no Family History (Parent hip fracture): Mother Glucocorticoids (More than 3mos): no History of Fracture in Adulthood: Tspine Secondary Osteoporosis: 1. Type 1 Diabetes: no 2. Hyperthyroidism: no 3. Menopause before 45: no 4. Malnutrition: no 5. Chronic liver disease: no Rheumatoid Arthritis: no Current Tobacco Use: no RISK FACTORS HISTORY OF: Hip Fracture (Right/Left): no Spine Fracture: yes, T12 compression fx When: May 2022 History of Wrist Fracture: no Surgery to Spine/Hip(right/left)/Wrist (right/left): no Family History of Osteoporosis: mother Active: yes Diet low in dairy products/other sources of calcium: yes Postmenopausal woman: yes Take estrogen and/or progesterone medications: no Lost more than 2 inches in height since high school: no Frequent falls: no Poor Health: no Hyperparathyroidism: no Adrenal Insufficiency: no MEDICATIONS: Prednisone or other steroids: no Thyroid Medications: no Osteoporosis Medications: no Additional Medications: Vit D, Biotin, BP Meds, Cholesterol Meds, Additional History: EXAM MEASUREMENTS: Bone mineral density about the R hip (g/cm2): 0.998 Bone mineral density about the L hip (g/cm2): 1.031 T Score values are as follows: -----R Neck: -0.3 -----L Neck: -0.8 -----R Total: -0.1 -----L Total: 0.2 Z Score values are as follows: -----R Neck: 0.7 -----L Neck: 0.3 -----R Total: 0.7 -----L Total: 0.9 Bone mineral density has: decreased -3.4 % since study of: 07/22/2018 Bone mineral density about the L Wrist (g/cm2): 0.546 T Score values are as follows: -----Dist. R+U: -1.5 -----Prox. R+U: -1.6 -----Radius total: -2.1 Z Score values are as follows: -----Dist. R+U: -0.3 -----Prox. R+U: -0.3 -----Radius total: -0.9 Baseline Study of Wrist FRAX%s: The graph provided illustrates a 23.3% chance for a major osteoporotic fx and a 0.7% chance f or the hips probability for fx in 10 years time. IMPRESSION: Osteopenia (T Score between -2.5 and -1). There is slightly increased risk of fracture and the patient may be considered for treatment. Re-Screen 2-5 years. NOTE: T-SCORE=SD OF THE YOUNG ADULT MEAN.
--- NOTE | 2022-10-05 08:25 | MM ---
Reason for Exam: Screening (asymptomatic). Last mammogram was performed 1 year(s) and 1 month(s) ago. Patient History: Menarche at age 14. First Full-Term at age 33. Late child-bearing (after 30). Right ovary removed at age 52. Hysterectomy at age 52. Postmenopausal. Other cancer, age 55. Maternal aunt had breast cancer, age 60. Maternal aunt had breast cancer, age 50. Sister had breast cancer, age 53. Risk Values: Krysta 5 year model risk: 2.9%. NCI Lifetime model risk: 12.0%. Prior Study Comparison: 09/17/2019 Bilateral Screening Mammogram, [facility]. 09/20/2020 Bilateral Screening Mammogram, [facility]. 09/27/2021 Bilateral MG 3D screening mammo w/cad, [facility]. Tissue Density: The breast tissue is heterogeneously dense. This may lower the sensitivity of mammography. Findings: Analyzed By CAD. There is no suspicious group of microcalcifications or new suspicious mass in either breast. Overall Assessment: Negative, BI-RAD 1 Management: Screening Mammogram of both breasts in [address] [facility] will attempt to contact patient to return for supplemental views and ultrasound if indicated. Patient should continue monthly self-breast exams. A clinical breast exam by your physician is recommended on an annual basis. This exam should not preclude additional follow-up of suspicious palpable abnormalities. Note on Krysta scores and lifetime risk: 1. A Krysta score greater than 3% is considered moderate risk. If this is the case, consider specialist referral to assess eligibility for a risk reducing agent. 2. If overall lifetime risk for the development of breast cancer is 20% or higher, the patient may qualify for future screening with alternating mammogram and breast MRI. Electronically signed and approved by: Aftab Gaitan DO
== END | disposition home or self-care (01) ==
LOC: RADMAMWWP 09:38
PROVIDERS: ATTEND Internal Medicine Geriatric Medicine
DX: Z12.31 Encounter for screening mammogram for malignant neoplasm of breast (principal); M81.0 Age-related osteoporosis without current pathological fracture; M85.89 Other specified disorders of bone density and structure, multiple sites; Z78.0 Asymptomatic menopausal state; Z80.3 Family history of malignant neoplasm of breast
CPT/HCPCS: 77063; 77067; 77080

== ENCOUNTER → 2023-10-08 | Outpatient (CLI) | payer BC ==
--- NOTE | 2023-10-10 13:21 | MM ---
Reason for Exam: Screening (asymptomatic). Last screening mammogram was performed 12 month(s) ago. Patient History: Menarche at age 14. First Full-Term at age 33. Late child-bearing (after 30). Right ovary removed at age 52. Hysterectomy at age 52. Postmenopausal. Other cancer, age 55. Maternal aunt had breast cancer, age 60. Maternal aunt had breast cancer, age 50. Sister had breast cancer, age 53. Risk Values: Krysta 5 year model risk: 3.0%. NCI Lifetime model risk: 11.6%. Prior Study Comparison: 09/20/2020 Bilateral Screening Mammogram, [facility]. 09/27/2021 Bilateral MG 3D screening mammo w/cad, [facility]. 10/04/2022 Bilateral MG 3D screening mammo w/cad, [facility]. Tissue Density: There are scattered areas of fibroglandular density. Findings: Analyzed By CAD. Right breast: There is no suspicious group of microcalcifications or new suspicious mass. Left breast: There is no suspicious group of microcalcifications or new suspicious mass. Overall Assessment: Negative, BI-RAD 1 Management: Screening Mammogram of both breasts in [address] [facility] will attempt to contact patient to return for supplemental views and ultrasound if indicated. Patient should continue monthly self-breast exams. A clinical breast exam by your physician is recommended on an annual basis. This exam should not preclude additional follow-up of suspicious palpable abnormalities. Note on Krysta scores and lifetime risk: 1. A Krysta score greater than 3% is considered moderate risk. If this is the case, consider specialist referral to assess eligibility for a risk reducing agent. 2. If overall lifetime risk for the development of breast cancer is 20% or higher, the patient may qualify for future screening with alternating mammogram and breast MRI. Electronically signed and approved by: Aftab Gaitan DO
== END | disposition home or self-care (01) ==
LOC: RADMAMWWP 14:36
PROVIDERS: ATTEND Internal Medicine Geriatric Medicine
DX: Z12.31 Encounter for screening mammogram for malignant neoplasm of breast (principal); Z78.0 Asymptomatic menopausal state; Z80.3 Family history of malignant neoplasm of breast
CPT/HCPCS: 77063; 77067

== ENCOUNTER 2024-01-01 08:13 | Day surgery (SDC) | payer BC, MEDICARE ==
[~2024-01-01 08:13] MED LIST: LIDOCAINE 1% (10MG/ML) FOR IV START INTRADERMA PRN
[2024-01-01 08:57] VITALS: RESP 18; TEMP 98
[2024-01-01] MEDS: IV FLUID CONTINUATION 1,000 ML IV ONE (09:06)
[2024-01-01] MEDS: LACTATED RINGERS 1,000 ML IV SCH (09:06)
[2024-01-01] MEDS ORDERED: PROPOFOL 10 MG/ML 20 ML VIAL IV ONE (09:45)
[2024-01-01] MEDS ORDERED: LIDOCAINE 2% (PF) 20 MG/ML 5 ML VIAL ONE (09:45)
--- NOTE | 2024-01-01 09:51 | P.GSHP ---
History of Present Illness H&P Date: 01/01/24 Chief Complaint: Colon cancer screening 63-year-old female here for colonoscopy. Last colonoscopy 5 years ago or so. History of colon polyps.No family history of colon cancer. Past Medical History Past Medical History: Eye Disorder, Hyperlipidemia, Hypertension Additional Past Medical History / Comment(s): Arthritis, cataracts History of Any Multi-Drug Resistant Organisms: None Reported Past Surgical History: Hysterectomy Additional Past Surgical History / Comment(s): abdominal prolapse with mesh , Knee arthroscopy, prolaspe uterus, Kidney stone removal with stent, cataract surgery Past Anesthesia/Blood Transfusion Reactions: No Reported Reaction Smoking Status: Never smoker - Past Family History Father Family Medical History: Coronary Artery Disease (CAD) Sister(s) Family Medical History: Cancer Mother Family Medical History: Hypertension Additional Family Medical History / Comment(s): RA Medications and Allergies Home Medications Medication Instructions Recorded Confirmed Type Rosuvastatin Calcium 5 mg PO Q48H 03/22/22 01/01/24 History hydrALAZINE HCL [Apresoline] 25 mg PO BID 03/22/22 01/01/24 History Meloxicam 7.5 mg PO DAILY 12/28/23 01/01/24 History Allergies Allergy/AdvReac Type Severity Reaction Status Date / Time Sulfa (Sulfonamide Allergy Rash/Hives Verified 01/01/24 08:51 Antibiotics) Surgical - Exam Vital Signs Temp Pulse Resp BP Pulse Ox 98.0 F 62 18 149/71 99 01/01/24 08:55 01/01/24 08:55 01/01/24 08:55 01/01/24 08:55 01/01/24 08:55 Physical exam: General: Well-developed, well-nourished HEENT: Normocephalic, sclerae nonicteric Abdomen: Nontender, nondistended Extremities: No edema Neuro: Alert and oriented Assessment and Plan (1) Colon cancer screening Narrative/Plan: Will proceed with colonoscopy at this time. Current Visit: Yes Status: Acute Code(s): Z12.11 - ENCOUNTER FOR SCREENING FOR MALIGNANT NEOPLASM OF COLON SNOMED Code(s): 870558418
--- NOTE | 2024-01-01 10:41 | P.PCN ---
Date of Procedure: 01/01/24 Procedure(s) Performed: PREOPERATIVE DIAGNOSIS: Colon cancer screening POSTOPERATIVE DIAGNOSIS: Descending colon mass, mild right sided colitis PROCEDURE: Colonoscopy with biopsy and spot injection ANESTHESIA: MAC SURGEON: Orlando Salmeron M.D. SPECIMENS: Right sided colitis, descending colon mass 85 cm ENDOSCOPIC PROCEDURE: The patient was placed on the endoscopy table in the left decubitus position. The Olympus colonoscope was inserted into the anus and passed under direct visualization to the cecum. The patient's right side of the colon was difficult to visualize fully. There was significant angulation of the cecum. I could not visualize the appendiceal orifice with certainty. Irrigation took place of some liquid stool there. There was mild inflammatory changes present of the right colon and biopsies were taken. It appeared that we could see an angulated view of the ileocecal valve. From that point the scope was withdrawn. The remainder of the visualized right colon, transverse colon appeared normal. At 85 cm and what we thought represented the descending colon splenic flexure region there was a indurated/firm masslike ulcerated lesion only involving 20% of the mucosal circumference. This measured about 2.5 cm in size. This was biopsied. Spot injection took place at and just distal to this lesion. The remainder of the descending sigmoid and rectum appeared normal. There was no visible diverticulosis. Digital rectal examination was normal. The patient was taken to the recovery room in stable condition per anesthesia guidelines. RECOMMENDATIONS: Await biopsy results. Will contact patient with findings.
[2024-01-01 10:43] VITALS: BP 127/73; PULSE 62
== END 2024-01-01 11:13 | disposition home or self-care (01) ==
LOC: ORWHC2ENDO 08:13
PROVIDERS: ATTEND Surgery
DX: Z12.11 Encounter for screening for malignant neoplasm of colon (principal); C18.6 Malignant neoplasm of descending colon; K52.9 Noninfective gastroenteritis and colitis, unspecified; E78.5 Hyperlipidemia, unspecified; I10 Essential (primary) hypertension; M19.90 Unspecified osteoarthritis, unspecified site; H57.9 Unspecified disorder of eye and adnexa; Z79.899 Other long term (current) drug therapy; Z88.2 Allergy status to sulfonamides; Z86.0100 Personal history of colon polyps, unspecified; Z87.442 Personal history of urinary calculi; Z90.710 Acquired absence of both cervix and uterus; Z98.890 Other specified postprocedural states; Z98.49 Cataract extraction status, unspecified eye; Z82.49 Family history of ischemic heart disease and other diseases of the circulatory system; Z82.61 Family history of arthritis
CPT/HCPCS: 88305; 88342; 88341; 45380; 44404; J2704; J2003; 45381

== ENCOUNTER → 2024-01-16 | Outpatient (CLI) | payer MEDICARE ==
[2024-01-16 15:51] LABS: African American GFR (CKD) 70 (>60 ml/min/1.73 sqM); Blood Urea Nitrogen 21 mg/dL (7-17); Non-African American GFR(CKD) 61 (>60 ml/min/1.73 sqM)
--- NOTE | 2024-01-16 20:30 | CT ---
EXAMINATION TYPE: CT ChestAbdPelvis w con CT DLP: 930.5 mGycm, Automated exposure control for dose reduction was used. DATE OF EXAM: 01/16/2024 4:37 PM COMPARISON: None. CLINICAL INDICATION: Female, 64 years old with history of COLON CNACNER C18.9; [facility], Recently diagnose d with colon CA after colonoscopy. Technique: CT ChestAbdPelvis w con; Multiple axial images were obtained. Two-dimensional coronal and sagittal reconstructions were obtained. Contrast used:100ml mL of Isovue 300 with IV Contrast, Oral contrast used: with Oral Contrast Findings: CHEST: LUNGS/ PLEURA: No focal consolidation, pneumothorax or pleural effusion. 3 mm right lower lobe pulmon brock nodule series 3 image 36. AIRWAY: Patent and unremarkable. HEART: Size within normal limits. MEDIASTINUM: No gross evidence of adenopathy. VASCULATURE: No aortic aneurysm. MUSCULOSKELETAL: No acute osseous abnormalities. SOFT TISSUES/LYMPH NODES: Unremarkable. LOWER NECK: No significant findings. ABDOMEN: ABDOMEN LIVER: Enhancing lesion measuring 10 mm series 3 image 59. GALLBLADDER AND BILE DUCTS: Unremarkable. PANCREAS: Unremarkable. SPLEEN: Unremarkable. ADRENAL GLANDS: Unremarkable. KIDNEYS AND URETERS: No evidence of hydronephrosis or renal calculus. The ureters are unremarkable. PELVIS BLADDER: Unremarkable REPRODUCTIVE: Uterus surgically absent. Simple appearing left ovarian 23 mm cyst. ABDOMEN & PELVIS STOMACH AND BOWEL: No evidence of bowel obstruction. Moderate to large amount stool throughout colon. No definitive mass visualized. Appendix is normal. No evidence for wall thickening correlate with di agnosis of colon cancer within descending colon. PERITONEUM/RETROPERITONEUM: No evidence of pneumoperitoneum or free fluid. VASCULATURE: No evidence of aortic aneurysm. MUSCULOSKELETAL: No acute osseous abnormalities LYMPH NODES: No gross evidence for lymphadenopathy. SOFT TISSUE/ABDOMINAL WALL: Unremarkable IMPRESSION: 1. No primary colon cancer definitively visualized in the location prior to the descending colon. In determinate enhancing liver lesion which is suspicious given history of colon cancer. Finding can be further evaluated with liver MRI. Indeterminate 3 mm right lower lobe pulmonary nodule. Correlate wit h priors at outside institutions. No other suspicious nodules. No lymphadenopathy identified. Finding s could both be incidental given lack of other findings for metastatic disease 2. Left ovarian 23 mm cyst. Findings communicated to Dr. Orlando Salmeron MD on 01/16/2024 8:[address] Aftab Gaitan. [facility], , 01/16/2024 8:28 PM
== END ==
LOC: RADCTMAIN 14:28
PROVIDERS: ATTEND Surgery
DX: C18.9 Malignant neoplasm of colon, unspecified
CPT/HCPCS: 36415; 71260; 74177; 82565; 84520

== ENCOUNTER 2024-03-21 09:37 | Emergency (ER) | payer MEDICARE ==
--- NOTE | 2024-03-21 10:11 | ED ---
Weakness HPI - General Chief complaint: Weakness Stated complaint: weakness/dizzy/post op Time Seen by Provider: 03/21/24 10:09 Source: patient, RN notes reviewed Mode of arrival: ambulatory Limitations: no limitations - History of Present Illness Initial comments: 64-year-old female presented to ER for evaluation of weakness. Patient is 10 days postop from a bowel resection due to colon cancer. Surgery completed out of [facility]. She is following up with Dr. Salmeron here. Patient reports for the past 24 hours she has felt weak with associated nausea and diarrhea. She also reports an uncomfortable burning sensation in her abdomen. She states she feels weak with chills and a headache. She denies any dizziness, lightheadedness, vomiting, chest pain, shortness of breath, urinary complaints. She denies any melena or hematochezia. No fevers. - Related Data Home Medications Medication Instructions Recorded Confirmed Rosuvastatin Calcium 5 mg PO Q48H 03/22/22 01/01/24 hydrALAZINE HCL [Apresoline] 25 mg PO BID 03/22/22 01/01/24 Meloxicam 7.5 mg PO DAILY 12/28/23 01/01/24 Previous Rx's Medication Instructions Recorded Amoxic-Pot Clav 875-125Mg 1 tab PO Q12HR #14 tab 03/21/24 [Augmentin 875-125] Ibuprofen [Motrin] 600 mg PO Q8HR PRN #30 tab 03/21/24 Allergies Allergy/AdvReac Type Severity Reaction Status Date / Time Sulfa (Sulfonamide Allergy Rash/Hives Verified 03/21/24 09:54 Antibiotics) Review of Systems ROS Statement: Those systems with pertinent positive or pertinent negative responses have been documented in the HPI. ROS Other: All systems not noted in ROS Statement are negative. Past Medical History Past Medical History: Hyperlipidemia, Hypertension Additional Past Medical History / Comment(s): Arthritis, cataracts History of Any Multi-Drug Resistant Organisms: None Reported Past Surgical History: Bowel Resection Additional Past Surgical History / Comment(s): abdominal prolapse with mesh. cataract sx Past Anesthesia/Blood Transfusion Reactions: No Reported Reaction Past Psychological History: No Psychological Hx Reported Smoking Status: Never smoker Past Alcohol Use History: Occasional Past Drug Use History: None Reported - Past Family History Father Family Medical History: Coronary Artery Disease (CAD) Sister(s) Family Medical History: Cancer Mother Family Medical History: Hypertension Additional Family Medical History / Comment(s): RA General Exam Limitations: no limitations General appearance: alert, in no apparent distress Respiratory exam: Present: normal lung sounds bilaterally. Absent: respiratory distress, wheezes, rales, rhonchi, stridor Cardiovascular Exam: Present: regular rate, normal rhythm, normal heart sounds. Absent: systolic murmur, diastolic murmur, rubs, gallop, clicks GI/Abdominal exam: Present: soft, tenderness (Generalized), hypoactive bowel sounds, other (Healing midline surgical incision. Healing bruises to lower abdomen. There is no erythema, drainage or dehiscence.) Neurological exam: Present: alert, oriented X3, CN II-XII intact Skin exam: Present: warm, dry, intact, normal color. Absent: rash Course Vital Signs 03/21/24 03/21/24 03/21/24 09:54 11:07 12:28 Temperature 99 F 98.7 F 99.1 F Pulse Rate 88 77 77 Respiratory 20 17 17 Rate Blood Pressure 106/68 106/71 121/74 O2 Sat by Pulse 96 96 99 Oximetry 03/21/24 03/21/24 14:20 15:02 Temperature 99.1 F 99.6 F Pulse Rate 86 37 L Respiratory 20 18 Rate Blood Pressure 147/81 146/79 O2 Sat by Pulse 100 99 Oximetry Medical Decision Making - Medical Decision Making Was pt. sent in by a medical professional or institution ([facility] Franz, [facility], urgent care, hospital, or [facility]...) When possible be specific @ -No Did you speak to anyone other than the patient for history (EMS, parent, family, police, friend...)? What history was obtained from this source @ -No Did you review nursing and triage notes (agree or disagree)? Why? @ -I reviewed and agree with nursing and triage notes Were old charts reviewed (outside hosp., previous admission, EMS record, old EKG, old radiological studies, urgent care reports/EKG's, [facility] records)? Report findings @ -No old charts were reviewed Differential Diagnosis (chest pain, altered mental status, abdominal pain women, abdominal pain men, vaginal bleeding, weakness, fever, dyspnea, syncope, headache, dizziness, GI bleed, back pain, seizure, CVA, palpatations, mental health, musculoskeletal)? @ -Differential Weakness:Hypoglycemia, shock, sepsis, hyponatremia, anemia, infection, WA, ETOH, adverse medicine reaction, overdose, stroke, this is not meant to be an all-inclusive list. EKG interpreted by me (3pts min.). @ -As above X-rays interpreted by me (1pt min.). @ -None done CT interpreted by me (1pt min.). @ -None done U/S interpreted by me (1pt. min.). @ -None done What testing was considered but not performed or refused? (CT, X-rays, U/S, labs)? Why? @ -None What meds were considered but not given or refused? Why? @ -None Did you discuss the management of the patient with other professionals (magen byrd i.e. , PA, [facility], lab, RT, psych nurse, professor of social work, outpatient coordinator, teacher, security officers and guards, therapeutic case manager)? Give summary @ -Yes, my attending, Dr. An, spoke with patient's surgeon at [facility] Dr. Bradford, who advised on IV antibiotics and discharge with oral Augmentin. She instructed patient to follow-up next week. Was smoking cessation discussed for >3mins.? @ -No Was critical care preformed (if so, how long)? @ -No Were there social determinants of health that impacted care today? How? (Homelessness, low income, unemployed, alcoholism, drug addiction, transportation, low edu. Level, literacy, decrease access to med. care, penitentiary, rehab)? @ -No Was there de-escalation of care discussed even if they declined (Discuss DNR or withdrawal of care, Hospice)? DNR status @ -No What co-morbidities impacted this encounter? (DM, HTN, Smoking, COPD, CAD, Cancer, CVA, ARF, Chemo, Hep., AIDS, mental health diagnosis, sleep apnea, morbid obesity)? @ -Recent bowel resection due to colon cancer. Was patient admitted / discharged? Hospital course, mention meds given and route, prescriptions, significant lab abnormalities, going to OR and other pertinent info. @ -[Discharge. 64-year-old female presented to the ER for evaluation of weakness and abdominal pain. Patient underwent a bowel resection 10 days ago at [facility] with Dr. Bradford. Upon examination, patient resting comfortably on stretcher no signs of acute distress. Vitals stable. Exam remarkable for generalized abdominal tenderness. There is a healing midline surgical incision with no evidence of infection. Healing contusion to lower abdomen. Given patient's recent surgery, laboratory studies and CT abdomen pelvis will be obtained. Laboratory studies remarkable for leukocytosis of 13.1 with a left shift. CMP unimpressive. Viral swabs negative. CT abdomen pelvis showing postsurgical changes of the colon resection involving transverse colon with development of a 2.8 cm fluid collection within the rectouterine space, abscess for seroma. Given findings concerning of a postoperative intra-abdominal a bscess, this case was discussed with patient's surgeon, , by my attending, Dr. An. Patient surgeon advised on IV antibiotics and discharged home with oral Augmentin. She instructed patient to follow-up closely next week. Patient received IV Zosyn prior to discharge. Augmentin and ibuprofen prescribed. Patient remained stable and stable for discharge. Patient expressed concern of developing fever and when to return, I instructed her to take her temperature prior to taking Tylenol or ibuprofen as these medications may mask fever. Patient afebrile in ER. Strict return parameters discussed. Patient discharged in stable condition with follow-up to PCP. Patient verbally expressed understanding and agreement with care plan. Case discussed with ED attending, Dr. An. Undiagnosed new problem with uncertain prognosis? @ -No Drug Therapy requiring intensive monitoring for toxicity (Heparin, Nitro, Insulin, Cardizem)? @ -No Were any procedures done? @ -No Diagnosis/symptom? @ -Intra-abdominal abscess versus seroma/status post bowel resection Acute, or Chronic, or Acute on Chronic? @ -Acute Uncomplicated (without systemic symptoms) or Complicated (systemic symptoms)? @ -Uncomplicated Side effects of treatment? @ -No Exacerbation, Progression, or Severe Exacerbation? @ -No Poses a threat to life or bodily function? How? (Chest pain, USA, WA, pneumonia, PE, COPD, DKA, ARF, appy, cholecystitis, CVA, Diverticulitis, Homicidal, Suicidal, threat to staff... and all critical care pts) @ -Yes, intra-abdominal abscess can lead to sepsis and/or endorgan dysfunction. - Lab Data Result diagrams: 03/21/24 10:48 03/21/24 10:48 Lab Results 03/21/24 03/21/24 03/21/24 Range/Units 10:48 10:48 10:48 WBC 13.1 H (3.8-10.6) k/uL RBC 4.37 (3.80-5.40) m/uL Hgb 13.4 (11.4-16.0) gm/dL Hct 41.3 (34.0-46.0) % MCV 94.6 (80.0-100.0) fL MCH 30.7 (25.0-35.0) pg MCHC 32.4 (31.0-37.0) g/dL RDW 12.1 (11.5-15.5) % Plt Count 359 (150-450) k/uL MPV 6.7 Neutrophils % 93 % Lymphocytes % 2 % Monocytes % 3 % Eosinophils % 1 % Basophils % 0 % Neutrophils # 12.2 H (1.3-7.7) k/uL Lymphocytes # 0.3 L (1.0-4.8) k/uL Monocytes # 0.4 (0-1.0) k/uL Eosinophils # 0.2 (0-0.7) k/uL Basophils # 0.0 (0-0.2) k/uL Sodium 138 (137-145) mmol/L Potassium 4.0 (3.5-5.1) mmol/L Chloride 106 (98-107) mmol/L Carbon Dioxide 20 L (22-30) mmol/L Anion Gap 12 mmol/L BUN 16 (7-17) mg/dL Creatinine 1.06 H (0.52-1.04) mg/dL Est GFR (CKD-EPI)AfAm 64 (>60 ml/min/1.73 sqM) Est GFR (CKD-EPI)NonAf 55 (>60 ml/min/1.73 sqM) Glucose 122 H (74-99) mg/dL Plasma Lactic Acid Mason 1.0 (0.7-2.0) mmol/L Calcium 9.6 (8.4-10.2) mg/dL Total Bilirubin 0.6 (0.2-1.3) mg/dL AST 30 (14-36) U/L ALT 45 H (4-34) U/L Alkaline Phosphatase 83 (38-126) U/L Total Protein 7.2 (6.3-8.2) g/dL Albumin 4.7 (3.5-5.0) g/dL Influenza Type A (PCR) (Not Detectd) Influenza Type B (PCR) (Not Detectd) RSV (PCR) (Not Detectd) SARS-CoV-2 (PCR) (Not Detectd) 03/21/24 Range/Units 10:48 WBC (3.8-10.6) k/uL RBC (3.80-5.40) m/uL Hgb (11.4-16.0) gm/dL Hct (34.0-46.0) % MCV (80.0-100.0) fL MCH (25.0-35.0) pg MCHC (31.0-37.0) g/dL RDW (11.5-15.5) % Plt Count (150-450) k/uL MPV Neutrophils % % Lymphocytes % % Monocytes % % Eosinophils % % Basophils % % Neutrophils # (1.3-7.7) k/uL Lymphocytes # (1.0-4.8) k/uL Monocytes # (0-1.0) k/uL Eosinophils # (0-0.7) k/uL Basophils # (0-0.2) k/uL Sodium (137-145) mmol/L Potassium (3.5-5.1) mmol/L Chloride (98-107) mmol/L Carbon Dioxide (22-30) mmol/L Anion Gap mmol/L BUN (7-17) mg/dL Creatinine (0.52-1.04) mg/dL Est GFR (CKD-EPI)AfAm (>60 ml/min/1.73 sqM) Est GFR (CKD-EPI)NonAf (>60 ml/min/1.73 sqM) Glucose (74-99) mg/dL Plasma Lactic Acid Mason (0.7-2.0) mmol/L Calcium (8.4-10.2) mg/dL Total Bilirubin (0.2-1.3) mg/dL AST (14-36) U/L ALT (4-34) U/L Alkaline Phosphatase (38-126) U/L Total Protein (6.3-8.2) g/dL Albumin (3.5-5.0) g/dL Influenza Type A (PCR) Not Detected (Not Detectd) Influenza Type B (PCR) Not Detected (Not Detectd) RSV (PCR) Not Detected (Not Detectd) SARS-CoV-2 (PCR) Not Detected (Not Detectd) - Radiology Data Radiology results: report reviewed, image reviewed Disposition Clinical Impression: Status post colon resection, Abdominal fluid collection Disposition: HOME SELF-CARE Condition: Stable Additional Instructions: Follow-up with surgeon on Sunday. Take Augmentin as prescribed. Have a low threshold of returning to the ER for any new or worsening concerns. Prescriptions: Amoxic-Pot Clav 875-125Mg [Augmentin 875-125] 1 tab PO Q12HR #14 tab Ibuprofen [Motrin] 600 mg PO Q8HR PRN #30 tab PRN Reason: Pain Is patient prescribed a controlled substance at d/c from ED?: No Referrals: Nehemias Schmidt MD [Primary Care Provider] - 1-2 days Time of Disposition: 13:16
[2024-03-21] MEDS: SODIUM CHLORIDE 0.9% 1,000 ML IV STA ×2 (11:00→12:41)
[2024-03-21 11:03] LABS: Basophils % (A) 0 %; Eosinophils # (A) 0.2 k/uL (0-0.7); Eosinophils % (A) 1 %; HCT 41.3 % (34.0-46.0); HGB 13.4 gm/dL (11.4-16.0); Lymphocytes # (A) 0.3 k/uL (1.0-4.8); Lymphocytes % (A) 2 %; MCH 30.7 pg (25.0-35.0); MCHC 32.4 g/dL (31.0-37.0); MCV 94.6 fL (80.0-100.0); Mean Platelet Volume 6.7; Monocytes # (A) 0.4 k/uL (0-1.0); Monocytes % (A) 3 %; Neutrophils # (A) 12.2 k/uL (1.3-7.7); Neutrophils % (A) 93 %; Platelet Count 359 k/uL (150-450); RBC 4.37 m/uL (3.80-5.40); RDW 12.1 % (11.5-15.5); WBC 13.1 k/uL (3.8-10.6)
[2024-03-21 11:24] LABS: ALT 45 U/L (4-34); AST 30 U/L (14-36); African American GFR (CKD) 64 (>60 ml/min/1.73 sqM); Albumin 4.7 g/dL (3.5-5.0); Alkaline Phosphatase 83 U/L (38-126); Anion Gap 12 mmol/L; Blood Urea Nitrogen 16 mg/dL (7-17); Calcium 9.6 mg/dL (8.4-10.2); Carbon Dioxide 20 mmol/L (22-30); Chloride 106 mmol/L (98-107); Glucose 122 mg/dL (74-99); Non-African American GFR(CKD) 55 (>60 ml/min/1.73 sqM); Sodium 138 mmol/L (137-145); Total Bilirubin 0.6 mg/dL (0.2-1.3); Total Protein 7.2 g/dL (6.3-8.2)
--- NOTE | 2024-03-21 11:51 | CT ---
EXAMINATION TYPE: CT abdomen pelvis w con CT DLP: 816.4 mGycm, Automated exposure control for dose reduction was used. DATE OF EXAM: 03/21/2024 11:39 AM COMPARISON: CT chest abdomen and pelvis 01/16/2024 CLINICAL INDICATION:Female, 64 years old with history of abd pain 10 days s/p resection; ABD PAIN TECHNIQUE: Standard CT of the abdomen and pelvis following the administration of 80 cc of Isovue 30 0 IV contrast material. Coronal and sagittal reformats were performed. FINDINGS: LOWER CHEST: Linear atelectasis within the left lower lobe. ABDOMEN LIVER: Unremarkable GALLBLADDER AND BILE DUCTS: Unremarkable. PANCREAS: Unremarkable. SPLEEN: Unremarkable. ADRENAL GLANDS: Unremarkable. KIDNEYS AND URETERS: No evidence of hydronephrosis or renal calculus. The kidneys enhance symmetrical ly. PELVIS BLADDER: Under distended, limiting evaluation. REPRODUCTIVE: Redemonstration of left ovarian 2.3 cm cystic lesion. Uterus is surgical absent or atro phic. ABDOMEN & PELVIS STOMACH AND BOWEL: Stomach and duodenum are unremarkable. Redundant sigmoid colon. Surgical changes o f the colon from resection with anastomosis involving the transverse colon. There is surrounding wall thickening likely related to postsurgical changes. The appendix is not definitively identified howev er there is no significant inflammatory changes in the right lower quadrant. No evidence of bowel obs truction. PERITONEUM: No evidence of pneumoperitoneum. There is a fluid collection measuring up to 2.8 cm the w ithin the rectouterine space (series 201, image 61). VASCULATURE: No evidence of aortic aneurysm. MUSCULOSKELETAL: No acute osseous abnormalities. No aggressive osseous lesion. Osteoarthritic changes of both hips. Bilateral SI joint degenerative changes. Multilevel degenerative changes of the visual ized spine. Chronic anterior compression deformity of the T12 vertebral body with approximately 60% h eight loss and 1 mm retropulsion. LYMPH NODES: No evidence for lymphadenopathy. SOFT TISSUE/ABDOMINAL WALL: Postsurgical changes of the midline anterior abdominal wall with regions of fat stranding. No organized fluid collection. IMPRESSION: 1. Postsurgical changes from colon resection involving the transverse colon with development of a 2. 8 cm fluid collection within the rectouterine space. Raises possibility of abscess versus seroma. 2. Redemonstration of left ovarian 2.3 cm cystic lesion. Consider further evaluation with outpatient pelvic ultrasound for further characterization. [facility], , 03/21/2024 11:49 AM
[2024-03-21] MEDS: PIPERACILLIN-TAZOBACTAM 3.375 GM in SODIUM CHLORIDE 0.9% 100 ML IVPB STA (14:12)
[2024-03-21] MEDS: IBUPROFEN 600 MG TAB PO STA (14:28)
[2024-03-21 15:04] VITALS: BP 146/79; PULSE 37; RESP 18; TEMP 99.6
== END 2024-03-21 15:10 | disposition home or self-care (01) ==
LOC: EC 09:37
DX: K65.1 Peritoneal abscess (principal); N83.202 Unspecified ovarian cyst, left side; C18.9 Malignant neoplasm of colon, unspecified; Z88.1 Allergy status to other antibiotic agents; Z88.2 Allergy status to sulfonamides; Z11.52 Encounter for screening for COVID-19
CPT/HCPCS: 36415; 80053; 83605; 85025; 87040; 87636; 74177; 99285; 96365; 96361; J2543; Q9967

== ENCOUNTER → 2024-10-08 | Outpatient (CLI) | payer MEDICARE ==
--- NOTE | 2024-10-08 22:58 | BD ---
EXAMINATION TYPE: Axial Bone Density DATE OF EXAM: 10/08/2024 CLINICAL HISTORY: 64 years old Female. ICD-10 CODE: Z13.820 SCREENING FOR OSTEO , Additional Histor y: Height: 62.5 Weight: 176.6 FRAX RISK QUESTIONS: Family History (Parent hip fracture): yes History of Fracture in Adulthood: yes Secondary Osteoporosis: no RISK FACTORS HISTORY OF: T-Spine Fracture: yes When: 06/22 Surgery to Spine/Hip(right/left)/Wrist (right/left): no MEDICATIONS: Thyroid Medications: no Osteoporosis Medications: no EXAM MEASUREMENTS: Bone mineral densitometry was performed using the [employer] System. Bone mineral density as measured about the Lumbar spine is: ----- L1-L4(G/cm2): 1.291 T Score Values are as follows: ----- L1: 0.3 ----- L2: 0.6 ----- L3: 1.5 ----- L4: 0.8 ----- L1-L4: 0.9 Z Score Values are as follows: ----- L1: 1.5 ----- L2: 1.8 ----- L3: 2.8 ----- L4: 2.1 ----- L1-L4: 2.1 Bone mineral density has: Increased 0.8% since study of: 07/22/2018 Bone mineral density about the R hip (g/cm2): 1..014 Bone mineral density about the L hip (g/cm2): 1.028 T Score values are as follows: -----R Neck: -0.5 -----L Neck: -0.9 -----R Total: 0.0 -----L Total: 0.2 Z Score values are as follows: -----R Neck: 0.8 -----L Neck: 0.4 -----R Total: 1.0 -----L Total: Bone mineral density has: Increased 0.6%since study of: 10/04/2022 FRAX%s: The graph provided illustrates a 23.6% chance for a major osteoporotic fx and a 1.0% chance f or the hips probability for fx in 10 years time. IMPRESSION: Normal (Values between +1 and -1 indicate normal bone mass). Consider repeating this study in 5 year s or sooner if there is some new clinical indication. NOTE: T-SCORE=SD OF THE YOUNG ADULT MEAN. [facility], , 10/08/2024 10:56 PM
--- NOTE | 2024-10-09 06:18 | MM ---
Reason for Exam: Screening (asymptomatic). Last screening mammogram was performed 12 month(s) ago. Patient History: Menarche at age 14. First Full-Term at age 33. Late child-bearing (after 29). Right ovary removed at age 52. Hysterectomy at age 52. Postmenopausal. Other cancer, age 55. Colorectal cancer, age 63. Patient used Hormonal Contraceptives for 2 years. Maternal aunt had breast cancer, age 60. Paternal aunt had breast cancer, age 50. Sister had breast cancer, age 53. Risk Values: Krysta 5 year model risk: 3.1%. NCI Lifetime model risk: 11.3%. Prior Study Comparison: 09/27/2021 Bilateral MG 3D screening mammo w/cad, [facility]. 10/04/2022 Bilateral MG 3D screening mammo w/cad, [facility]. 10/08/2023 Bilateral MG 3D screening mammo w/cad, [facility]. Tissue Density: There are scattered areas of fibroglandular density. Findings: Analyzed By CAD. There are a few tiny benign appearing round calcifications scattered throughout the left breast redemonstrated. There is no suspicious group of microcalcifications or new suspicious mass in either breast. Overall Assessment: Benign, BI-RAD 2 Management: Screening Mammogram of both breasts in 1 year. . Patient should continue monthly self-breast exams. A clinical breast exam by your physician is recommended on an annual basis. This exam should not preclude additional follow-up of suspicious palpable abnormalities. Note on Krysta scores and lifetime risk: 1. A Krysta score greater than 3% is considered moderate risk. If this is the case, consider specialist referral to assess eligibility for a risk reducing agent. 2. If overall lifetime risk for the development of breast cancer is 20% or higher, the patient may qualify for future screening with alternating mammogram and breast MRI. [facility], , 10/09/2024 6:15 AM. Electronically signed and approved by: Korey Gramajo M.D.
== END | disposition home or self-care (01) ==
LOC: RADMAMWWP 15:30
PROVIDERS: ATTEND Internal Medicine Geriatric Medicine
DX: Z12.31 Encounter for screening mammogram for malignant neoplasm of breast (principal); Z13.820 Encounter for screening for osteoporosis; R92.323 Mammographic fibroglandular density, bilateral breasts; Z78.0 Asymptomatic menopausal state; Z80.3 Family history of malignant neoplasm of breast; Z92.0 Personal history of contraception
CPT/HCPCS: 77063; 77067; 77080